=== PATIENT | male | born 1960 | race Caucasian/White ===

== ENCOUNTER → 2016-06-15 | Outpatient (CLI) | payer OTHER ==
--- NOTE | 2016-06-15 10:35 | MR ---
EXAMINATION TYPE: MR shoulder RT wo con DATE OF EXAM: 06/15/2016 10:03 AM COMPARISON: NONE HISTORY: Pain in rt shoulder x 3 weeks. TECHNIQUE: Multiplanar, multisequence imaging of the right shoulder is performed without contrast. FINDINGS: Rotator Cuff: There is a partial full-thickness tear present, abnormal signal within the tendon subst ance more posteriorly compatible with tendinopathy of the infraspinatus tendon. Supraspinatus tendon shows the milad tear with retraction to the level of the acromion. Acromioclavicular Joint: Arthropathy changes present causing mass effect on the musculotendinous junc tion of supraspinatus, fluid signal present in the subacromial subdeltoid bursa. Glenohumeral Joint: There is geode formation at the bony glenoid especially at the inferior margin. S ome interval remodeling, spurring is present compatible with osteoarthritic change. Suspect there is a para labral cyst inferiorly. Labrum: Some linear increased signal is present within the labrum superiorly suggestive of tear. Labral cyst at the inferior aspect suggests labral tear, abnormal increased signal is present within the labrum. Biceps Tendon: Long biceps tendon shows fluid signal along its course, the tendon is perched along th e medial aspect of the bicipital groove, some increased signal within the tendon suggesting some tend inosis is noted. Bone marrow signal: Labral signal as described within the bony labrum. Subchondral geode formation is suspected. Other: There is a joint effusion. Distal acromial spur is present. Fluid present within the soft tiss ues deep to the deltoid muscle. IMPRESSION: Rotator cuff tear is full-thickness and partial as described. Long head biceps tendon. Suspect labral tear, osteoarthritic change. Joint effusion. Correlate for im pingement, distal acromial spur.
== END | disposition home or self-care (01) ==
LOC: RADMRIMAIN 09:16
PROVIDERS: ATTEND Orthopaedic Surgery Sports Medicine
DX: S46.011A Strain of muscle(s) and tendon(s) of the rotator cuff of right shoulder, initial encounter (principal)

== ENCOUNTER → 2016-06-23 | Outpatient (CLI) | payer OTHER ==
--- NOTE | 2016-06-23 23:42 | MR ---
EXAMINATION TYPE: MR thoracic spine wo con DATE OF EXAM: 06/23/2016 9:30 PM COMPARISON: 05/17/2015 HISTORY: Back pain Standard multiplanar, multisequence MRI departmental protocol Multiplanar, multisequence images of the thoracic spine were acquired. FINDINGS: The thoracic Normal alignment. There is degenerative disc space narrowing throughout the thoracic spine. I see no compression fracture. There is a small posterior disc herniation at T2-3 centrally and towards the left side. There is mild posterior disc herniation at T8-9 in the midline. There is a developmentally large spinal canal and no significant impingement on the thoracic spinal cord. There is no spinal stenosis. There is a round ed area of high signal in the T11 vertebral body consistent with hemangioma. There is no paraspinal m ass. The posterior elements are intact. IMPRESSION: Multilevel spondylosis. Mild posterior disc herniations as above. No spinal stenosis. The T2-3 disc h erniation appears slightly smaller than last exam. No fracture. There is posterior disc bulging at T6 -7 that is smaller than last exam.
== END | disposition home or self-care (01) ==
LOC: RADMRIMAIN 20:41
PROVIDERS: ATTEND Physical Medicine & Rehabilitation
DX: M51.24 Other intervertebral disc displacement, thoracic region (principal); M47.814 Spondylosis without myelopathy or radiculopathy, thoracic region
CPT/HCPCS: 72146

== ENCOUNTER → 2016-07-14 | Outpatient (CLI) | payer OTHER ==
--- NOTE | 2016-07-14 12:51 | MR ---
MRI CERVICAL SPINE: CLINICAL HISTORY: Cervicalgia and cervical region spondylosis per order. Headache with left-sided nec k pain causing pain or weakness into right arm per patient. TECHNIQUE: Multiplanar, multisequence imaging of the cervical spine is performed without IV contrast. COMPARISON: None. FINDINGS: Sagittal images of the cervical spine show the craniocervical junction to appear within nor mal limits. The cervical and upper thoracic spinal cord is normal in course, caliber, and signal. Th e vertebral body heights are normal. There is moderate to severe multilevel disc space narrowing wit h relative sparing of C2-C3 level with moderate multilevel spurring multilevel small posterior spur d isc complexes are seen effacing anterior thecal sac with relative sparing of C2-C3 level on sagittal images. There is overall heterogeneity of bone marrow signal intensity with endplate changes identifi ed most prominent at C7-T1 level. Axial images show the C2-C3 level to appear within normal limits. Axial images at C3-C4 level show posterior spur disc complex effacing anterior thecal sac and causing mild to moderate bilateral neural foraminal narrowing , uncovertebral facet arthropathy is also fel t present bilaterally. Axial images at C4-C5 level show right paracentral spur disc complex effacing anterior thecal sac and causing moderate to severe bilateral neural foraminal narrowing, uncovertebral facet arthropathy fahad aterally at this level is present. Axial images at C5-C6 level show broad-based posterior disc protrusion mildly effacing anterior theca l sac and causing moderate to severe bilateral neural foraminal narrowing. Some uncovertebral facet a rthropathy bilaterally is present at this level. Axial images at C6-C7 level show broad-based lobulated paracentral disc protrusion effacing anterior thecal sac and causing advanced left and moderate right-sided neural foraminal narrowing. Axial images at C7-T1 level show broad-based central disc protrusion mildly effacing anterior thecal sac, there is mild to moderate left-sided neural foraminal narrowing. Right-sided neural foramen is p atent. Axial images at T1-T2 level are felt within normal limits on axial image 13. IMPRESSION: Retrolisthesis C4-C5 level with moderate to advanced multilevel degenerative changes quit e pronounced for patient's age with relative sparing of C2-C3 level with further details as noted in body of report.
== END | disposition home or self-care (01) ==
LOC: RADMRIMAIN 11:51
PROVIDERS: ATTEND Physical Medicine & Rehabilitation
DX: M43.12 Spondylolisthesis, cervical region (principal); M47.812 Spondylosis without myelopathy or radiculopathy, cervical region
CPT/HCPCS: 72141

== ENCOUNTER → 2017-06-11 | Outpatient (CLI) | payer OTHER ==
--- NOTE | 2017-06-11 10:58 | MR ---
EXAMINATION TYPE: MR shoulder LT wo con DATE OF EXAM: 06/11/2017 7:44 AM COMPARISON: NONE HISTORY: Pain in left shoulder, Impingement TECHNIQUE: Multiplanar multispin echo imaging of the left shoulder was performed. FINDINGS: Rotator cuff : Retracted full-thickness tear of the supraspinatus tendon with fluid filled gap measur ing 11.6 mm. No evidence for muscular atrophy. Partial tear at the subscapularis insertion. Infraspin atus is intact. Moderate fluid surrounds the subscapularis tendon and musculature at its musculotendi nous junction. There is also a small amount of subacromial subdeltoid fluid noted. Musculature: There is no muscular tear, contusion, or atrophy. Acromioclavicular joint : Moderate AC joint arthropathy noted. Subacromial spurring seen resulting in impingement. Osseous structures : There are no fractures or regions of abnormal bone marrow signal intensity. Long biceps tendon : The biceps tendon is normally situated within the bicipital groove. No complete or partial biceps tendon tear is present. Glenohumeral Joint fluid : Subcoracoid fluid is noted. Cartilage and Bone : No focal hyaline cartilage defects are noted. No Hill-Sachs, reverse Hill-Sachs, or bony Bank[place] lesions are seen. Labrum : There are no SLAP or soft tissue Bankart lesions. No paralabral cysts are seen. OTHER FINDINGS : none IMPRESSION: 1. Retracted full-thickness tear supraspinatus tendon. 2. Partial tear subscapularis tendon with surrounding fluid. 3. Subacromial spurring resulting in impingement.
== END | disposition home or self-care (01) ==
LOC: RADMRIMAIN 07:00
PROVIDERS: ATTEND Orthopaedic Surgery Sports Medicine
DX: M75.122 Complete rotator cuff tear or rupture of left shoulder, not specified as traumatic (principal); M75.42 Impingement syndrome of left shoulder

== ENCOUNTER → 2017-08-20 | Outpatient (CLI) | payer OTHER ==
--- NOTE | 2017-08-20 15:41 | XR ---
EXAMINATION TYPE: XR abdomen 2V DATE OF EXAM: 08/20/2017 HISTORY: Pain. Technique: 2 views of the abdomen are submitted. Comparison: None. Findings: There is no convincing evidence of pneumoperitoneum. The Bowel gas pattern is nonspecific and nonobstructive. No sizable air-fluid levels are seen. No mass effects are noted. No renal calcifications are identified. IMPRESSION: 1. Nonspecific nonobstructive bowel gas pattern
== END ==
LOC: RADXRMAIN 15:19
PROVIDERS: ATTEND Pediatrics
DX: R10.9 Unspecified abdominal pain (principal)
CPT/HCPCS: 74019

== ENCOUNTER → 2017-09-09 | Outpatient (CLI) | payer OTHER ==
--- NOTE | 2017-09-09 18:45 | MR ---
EXAMINATION TYPE: MR knee LT wo con DATE OF EXAM: 09/09/2017 COMPARISON: NONE HISTORY: pain in left knee TECHNIQUE: Multiplanar, multisequence images of the knee is performed without IV contrast. FINDINGS: MEDIAL MENISCUS: There is a tear noted at posterior horn medial meniscus with medial displacement of the meniscus noted. There is superimposed myxoid degeneration . Anterior horn is intact. LATERAL MENISCUS: Anterior and posterior horns are intact without tear. CRUCIATE LIGAMENTS: The anterior and posterior cruciate ligaments are intact and unremarkable. COLLATERAL LIGAMENTS: Medial collateral ligament strain with partial tear difficult to exclude. Later al collateral ligament is intact. EXTENSOR MECHANISM: Visualized quadriceps and patellar tendons are intact. EFFUSION: No significant suprapatellar joint effusion. POPLITEAL CYST: No popliteal/kaplan cyst. TRICOMPARTMENT SPACES: Intact CARTILAGE: Cartilaginous thinning involving the medial femoral condyle with underlying bone marrow ed douglas. BONE MARROW SIGNAL: Mild bone marrow increased signal medial femoral condyle as well as the medial ti bial plateau. OTHER: No additional significant abnormality is appreciated. IMPRESSION: 1. Medial meniscal tear. 2. Strain with partial tear difficult to exclude the medial collateral ligament.
== END | disposition home or self-care (01) ==
LOC: RADMRIMAIN 06:17
PROVIDERS: ATTEND Orthopaedic Surgery Sports Medicine
DX: S83.242A Other tear of medial meniscus, current injury, left knee, initial encounter (principal); M75.42 Impingement syndrome of left shoulder; M66.812 Spontaneous rupture of other tendons, left shoulder; M54.41 Lumbago with sciatica, right side; Z47.89 Encounter for other orthopedic aftercare; Z98.890 Other specified postprocedural states

== ENCOUNTER 2017-11-01 14:09 | Emergency (ER) | payer OTHER ==
[2017-11-01 14:30] VITALS: RESP 16; TEMP 97.8
--- NOTE | 2017-11-01 14:57 | ED ---
Male Urogenital HPI - General Chief complaint: Urogenital Stated complaint: STD check Time Seen by Provider: 11/01/17 14:41 Source: patient, RN notes reviewed Mode of arrival: ambulatory Limitations: no limitations - History of Present Illness Initial comments: This is a 57-year-old male who presents to the emergency department with request for STD testing. Patient states that he has been to his for the past 25 years. He states that 2 weeks ago she informed him that she may have an STD. Patient is unable to recall what STD his may have. He denies any genital lesions or urethral discharge. Patient states that he did call his primary care provider but was unable to get in for the next couple days. Patient is very worried and wishes to be tested for syphilis, HIV, chlamydia and gonorrhea. Denies any recent fevers or chills, chest pain or shortness of breath, abdominal pain, nausea or vomiting, dizziness or headache. - Related Data Allergies Allergy/AdvReac Type Severity Reaction Status Date / Time No Known Allergies Allergy Verified 11/01/17 14:30 Review of Systems ROS Statement: Those systems with pertinent positive or pertinent negative responses have been documented in the HPI. ROS Other: All systems not noted in ROS Statement are negative. Past Medical History Past Medical History: Hyperlipidemia, Hypertension History of Any Multi-Drug Resistant Organisms: None Reported Past Surgical History: Hernia Repair, Orthopedic Surgery Past Psychological History: No Psychological Hx Reported Smoking Status: Never smoker Past Alcohol Use History: None Reported Past Drug Use History: Marijuana General Exam - General Exam Comments Initial Comments: General: Awake and alert, well-developed; in no apparent distress. HEENT: Head atraumatic, normocephalic. Pupils are equal, round and reactive to light. Extraocular movements intact. Oropharynx moist without erythema or exudate. Neck: Supple. Normal ROM. Cardiovascular: Regular rate and rhythm. No murmurs, rubs or gallops. Chest symmetrical. Respiratory: Lungs clear to auscultation bilaterally. No wheezes, rales or rhonchi. Normal respiratory effort with no use of accessory muscles. Musculoskeletal: Normal ROM, no tenderness bilateral upper and lower extremities. Ambulating normally. Skin: [place], warm and dry without rashes or lesions. Neurological: Alert and oriented x3. CN II-XII grossly intact. Speech is fluent and answers are appropriate. No focal neuro deficits. Psychiatric: Patient is tearful and appears sad and worried. Limitations: no limitations Course Vital Signs 11/01/17 14:26 Temperature 97.8 F Pulse Rate 92 Respiratory 16 Rate Blood Pressure 197/94 O2 Sat by Pulse 97 Oximetry Medical Decision Making - Medical Decision Making This is a 57-year-old male who presents to the emergency department with request to have STD testing. Blood work was sent for testing of HIV and syphilis. Urine was sent for testing for chlamydia and gonorrhea. Patient was informed that these are send out tests and he will be notified if anything comes back positive. Patient is in no acute distress. He'll be discharged home at this time. All questions answered. Disposition Clinical Impression: Risk for sexually transmitted disease Disposition: HOME SELF-CARE Condition: Good Instructions: Sexually Transmitted Diseases (ED) Additional Instructions: You will be notified in the next few days of the results. Please follow up with primary care provider within 1-2 days. Return to emergency department if symptoms should worsen or any concerns arise. Is patient prescribed a controlled substance at d/c from ED?: No Referrals: Almas Martel MD [Primary Care Provider] - 1-2 days Time of Disposition: 15:22
[2017-11-01 15:43] VITALS: BP 168/79; PULSE 69
[2017-11-01 20:12] LABS: HIV AB P24 Non-Reactive (Non-Reactive); HIV P24 AG Non-Reactive (Non-Reactive)
[2017-11-02 15:13] LABS: C. trachomatis,PCR Negative (Neg,Equiv); Chlamydia trachomatis Source Urine; N. gonorrhoeae,PCR Negative (Neg,Equiv); Neisseria Source Urine
== END 2017-11-01 15:20 | disposition home or self-care (01) ==
LOC: EC 14:09
DX: Z91.89 Other specified personal risk factors, not elsewhere classified (principal); Z11.3 Encounter for screening for infections with a predominantly sexual mode of transmission
CPT/HCPCS: 36415; 86780; 87390; 87491; 87591; 99283

== ENCOUNTER 2017-12-25 06:43 | Emergency (ER) | payer OTHER ==
--- NOTE | 2017-12-25 07:20 | ED ---
General Adult HPI - General Chief complaint: Abdominal Pain Stated complaint: rib/back pain Time Seen by Provider: 12/25/17 07:01 Source: patient, RN notes reviewed, old records reviewed Mode of arrival: ambulatory Limitations: no limitations - History of Present Illness Initial comments: 57-year-old male presenting with right upper quadrant pain. Patient states he has had this pain for many years. It is mostly minimal and intermittent. Over the past several weeks his pain has become more constant and more severe. Describes it as a dull aching and burning sensation in his right upper quadrant and right flank. Denies any central chest pain or dyspnea. Denies lower abdominal pain. Patient denies alcohol abuse. Patient has past medical history of hypertension and hyperlipidemia. No history of heart disease. Denies tobacco use. Denies vomiting or diarrhea. Denies fever or chills. - Related Data Home Medications Medication Instructions Recorded Confirmed Fenofibrate Nanocrystallized 145 mg PO DAILY 12/25/17 12/25/17 [Tricor] Allergies Allergy/AdvReac Type Severity Reaction Status Date / Time No Known Allergies Allergy Verified 11/01/17 14:30 Review of Systems ROS Statement: Those systems with pertinent positive or pertinent negative responses have been documented in the HPI. ROS Other: All systems not noted in ROS Statement are negative. Past Medical History Past Medical History: Hyperlipidemia, Hypertension History of Any Multi-Drug Resistant Organisms: None Reported Past Surgical History: Hernia Repair, Orthopedic Surgery Past Psychological History: No Psychological Hx Reported Smoking Status: Never smoker Past Alcohol Use History: None Reported Past Drug Use History: Marijuana General Exam Limitations: no limitations General appearance: alert, in no apparent distress Head exam: Present: atraumatic, normocephalic Eye exam: Present: normal appearance, PERRL ENT exam: Present: normal exam Neck exam: Present: normal inspection. Absent: tenderness, meningismus Respiratory exam: Present: normal lung sounds bilaterally. Absent: respiratory distress Cardiovascular Exam: Present: regular rate, normal rhythm GI/Abdominal exam: Present: soft. Absent: distended, tenderness, guarding, rebound Extremities exam: Present: normal inspection, normal capillary refill. Absent: pedal edema Neurological exam: Present: alert, oriented X3, CN II-XII intact. Absent: motor sensory deficit Psychiatric exam: Present: normal affect, normal mood Skin exam: Present: warm, dry, intact. Absent: cyanosis, diaphoretic Course Vital Signs 12/25/17 12/25/17 06:44 07:42 Temperature 98.0 F Pulse Rate 82 78 Respiratory 20 18 Rate Blood Pressure 162/114 153/91 O2 Sat by Pulse 97 77 L Oximetry EKG Findings - EKG Comments: EKG Findings:: EKG: Normal sinus rhythm, left axis deviation rate of 77, SC interval 176, QRS duration 98, QTC [address] segment elevation or depression Medical Decision Making - Medical Decision Making 57-year-old male presenting with chronic right upper quadrant abdominal pain. Patient's pain is been present for many years. It has seemed to worsen over the past several weeks. No vomiting, no fever. Patient is well-appearing on exam. CBC, CMP are within normal limits. Lipase is 144 which is normal. Urinalysis clear, no hematuria. Chest x-ray and abdominal x-ray are negative for any acute process. Ultrasound gallbladder does show multiple polyps. Normal gallbladder wall, no pericholecystic fluid, normal common bile duct. Patient's symptoms may be related to gallbladder polyps. He will be referred to general surgery. Return with worsening or changing symptoms. - Lab Data Result diagrams: 12/25/17 07:00 12/25/17 07:00 Lab Results 12/25/17 12/25/17 12/25/17 Range/Units 07:00 07:00 07:00 WBC 6.5 (3.8-10.6) k/uL RBC 5.01 (4.30-5.90) m/uL Hgb 15.4 (13.0-17.5) gm/dL Hct 45.4 (39.0-53.0) % MCV 90.6 (80.0-100.0) fL MCH 30.7 (25.0-35.0) pg MCHC 33.8 (31.0-37.0) g/dL RDW 12.7 (11.5-15.5) % Plt Count 293 (150-450) k/uL Neutrophils % 64 % Lymphocytes % 20 % Monocytes % 10 % Eosinophils % 4 % Basophils % 0 % Neutrophils # 4.1 (1.3-7.7) k/uL Lymphocytes # 1.3 (1.0-4.8) k/uL Monocytes # 0.7 (0-1.0) k/uL Eosinophils # 0.3 (0-0.7) k/uL Basophils # 0.0 (0-0.2) k/uL PT 10.2 (9.0-12.0) sec INR 1.0 (<1.2) APTT 23.1 (22.0-30.0) sec Sodium 139 (137-145) mmol/L Potassium 4.2 (3.5-5.1) mmol/L Chloride 105 (98-107) mmol/L Carbon Dioxide 24 (22-30) mmol/L Anion Gap 10 mmol/L BUN 21 H (9-20) mg/dL Creatinine 0.78 (0.66-1.25) mg/dL Est GFR (CKD-EPI)AfAm >90 (>60 ml/min/1.73 sqM) Est GFR (CKD-EPI)NonAf >90 (>60 ml/min/1.73 sqM) Glucose 107 H (74-99) mg/dL Calcium 9.5 (8.4-10.2) mg/dL Total Bilirubin 0.9 (0.2-1.3) mg/dL AST 40 (17-59) U/L ALT 29 (21-72) U/L Alkaline Phosphatase 56 (38-126) U/L Troponin I (0.000-0.034) ng/mL Total Protein 7.0 (6.3-8.2) g/dL Albumin 4.5 (3.5-5.0) g/dL Amylase 79 (30-110) U/L Lipase 144 (23-300) U/L Urine Color Urine Appearance (Clear) Urine pH (5.0-8.0) Ur Specific [place] (1.001-1.035) Urine Protein (Negative) Urine Glucose (UA) (Negative) Urine Ketones (Negative) Urine Blood (Negative) Urine Nitrite (Negative) Urine Bilirubin (Negative) Urine Urobilinogen (<2.0) mg/dL Ur Leukocyte Esterase (Negative) 12/25/17 12/25/17 Range/Units 07:00 07:40 WBC (3.8-10.6) k/uL RBC (4.30-5.90) m/uL Hgb (13.0-17.5) gm/dL Hct (39.0-53.0) % MCV (80.0-100.0) fL MCH (25.0-35.0) pg MCHC (31.0-37.0) g/dL RDW (11.5-15.5) % Plt Count (150-450) k/uL Neutrophils % % Lymphocytes % % Monocytes % % Eosinophils % % Basophils % % Neutrophils # (1.3-7.7) k/uL Lymphocytes # (1.0-4.8) k/uL Monocytes # (0-1.0) k/uL Eosinophils # (0-0.7) k/uL Basophils # (0-0.2) k/uL PT (9.0-12.0) sec INR (<1.2) APTT (22.0-30.0) sec Sodium (137-145) mmol/L Potassium (3.5-5.1) mmol/L Chloride (98-107) mmol/L Carbon Dioxide (22-30) mmol/L Anion Gap mmol/L BUN (9-20) mg/dL Creatinine (0.66-1.25) mg/dL Est GFR (CKD-EPI)AfAm (>60 ml/min/1.73 sqM) Est GFR (CKD-EPI)NonAf (>60 ml/min/1.73 sqM) Glucose (74-99) mg/dL Calcium (8.4-10.2) mg/dL Total Bilirubin (0.2-1.3) mg/dL AST (17-59) U/L ALT (21-72) U/L Alkaline Phosphatase (38-126) U/L Troponin I <0.012 (0.000-0.034) ng/mL Total Protein (6.3-8.2) g/dL Albumin (3.5-5.0) g/dL Amylase (30-110) U/L Lipase (23-300) U/L Urine Color Light Yellow Urine Appearance Clear (Clear) Urine pH 7.0 (5.0-8.0) Ur Specific [place] 1.007 (1.001-1.035) Urine Protein Negative (Negative) Urine Glucose (UA) Negative (Negative) Urine Ketones Negative (Negative) Urine Blood Negative (Negative) Urine Nitrite Negative (Negative) Urine Bilirubin Negative (Negative) Urine Urobilinogen <2.0 (<2.0) mg/dL Ur Leukocyte Esterase Negative (Negative) Disposition Clinical Impression: Polyp of gallbladder Disposition: HOME SELF-CARE Condition: Good Instructions: Biliary Colic (ED) Is patient prescribed a controlled substance at d/c from ED?: No Referrals: Almas Martel MD [Primary Care Provider] - 1-2 days Dilip Barron DO [Doctor of Osteopathic Medicine] - 1-2 days Time of Disposition: 08:38
[2017-12-25 07:27] LABS: Basophils % (A) 0 %; Eosinophils # (A) 0.3 k/uL (0-0.7); Eosinophils % (A) 4 %; HCT 45.4 % (39.0-53.0); HGB 15.4 gm/dL (13.0-17.5); Lymphocytes # (A) 1.3 k/uL (1.0-4.8); Lymphocytes % (A) 20 %; MCH 30.7 pg (25.0-35.0); MCHC 33.8 g/dL (31.0-37.0); MCV 90.6 fL (80.0-100.0); Mean Platelet Volume 6.4; Monocytes # (A) 0.7 k/uL (0-1.0); Monocytes % (A) 10 %; Neutrophils # (A) 4.1 k/uL (1.3-7.7); Neutrophils % (A) 64 %; Platelet Count 293 k/uL (150-450); RBC 5.01 m/uL (4.30-5.90); RDW 12.7 % (11.5-15.5); WBC 6.5 k/uL (3.8-10.6)
--- NOTE | 2017-12-25 07:35 | XR ---
EXAMINATION TYPE: XR chest 2V DATE OF EXAM: 12/25/2017 HISTORY: abdominal pain. REFERENCE: Previous study dated 03/03/2012. FINDINGS: The lungs are clear. Pleural space are clear. The heart is not enlarged. IMPRESSION: NO ACTIVE CARDIOTHORACIC DISEASE.
--- NOTE | 2017-12-25 07:36 | XR ---
EXAMINATION TYPE: XR KUB , 2 VIEWS DATE OF EXAM ORDERED: 12/25/2017 HISTORY: abdominal pain. COMPARISON: None. FINDINGS: The lung bases are clear. The abdominal gas pattern is normal. There is no evidence of obstruction or free air. No unusual calc ifications are seen. There is a mild dextroscoliosis. IMPRESSION: NO ACTIVE INTRA-ABDOMINAL ABNORMALITY.
[2017-12-25 07:44] VITALS: RESP 18
[2017-12-25 07:50] LABS: Albumin 4.5 g/dL (3.5-5.0); Amylase 79 U/L (30-110); Anion Gap 10 mmol/L; Calcium 9.5 mg/dL (8.4-10.2); Carbon Dioxide 24 mmol/L (22-30); Chloride 105 mmol/L (98-107); Glucose 107 mg/dL (74-99); Lipase 144 U/L (23-300); Sodium 139 mmol/L (137-145); Total Bilirubin 0.9 mg/dL (0.2-1.3)
[2017-12-25 07:51] LABS: Partial Thromboplastin Time 23.1 sec (22.0-30.0); Prothrombin Time 10.2 sec (9.0-12.0)
[2017-12-25 07:57] LABS: AST 40 U/L (17-59); Blood Urea Nitrogen 21 mg/dL (9-20); Potassium 4.2 mmol/L (3.5-5.1)
[2017-12-25 07:58] LABS: ALT 29 U/L (21-72); Alkaline Phosphatase 56 U/L (38-126)
[2017-12-25 08:00] LABS: Appearance,Urine Clear (Clear); Bilirubin,Urine Negative (Negative); Blood,Urine Negative (Negative); Color,Urine Light Yellow; Glucose,Urine (UA) Negative (Negative); Ketones,Urine Negative (Negative); Leukocyte Esterase,Urine Negative (Negative); Nitrite,Urine Negative (Negative); Protein,Urine Negative (Negative); Specific Gravity,Urine 1.007 (1.001-1.035); Urobilinogen,Urine <2.0 mg/dL (<2.0)
--- NOTE | 2017-12-25 08:08 | US ---
EXAMINATION TYPE: US gallbladder DATE OF EXAM: 12/25/2017 COMPARISON: US CLINICAL HISTORY: Pain. Pt states RUQ pain EXAM MEASUREMENTS: Liver Length: 15.7 cm Gallbladder Wall: 0.2 cm CBD: 0.2 cm Right Kidney: 12.4 x 4.7 x 5.2 cm Pancreas: Obscured by bowel gas Liver: wnl Gallbladder: Multiple, small polyps anterior and posterior reece, otherwise appeared unremarkable Evidence for sonographic Berger's sign: Yes CBD: wnl Right Kidney: Cyst mid= 0.4 cm, otherwise appeared wnl The pancreas is obscured. The liver is normal in size without biliary dilatation. There are multiple small polyps within the gallbladder. The gallbladder wall measures 2 mm. The dista l common hepatic duct measures 2 mm. There is a tiny, 4 mm cortical cyst involving the lower pole of the right kidney. IMPRESSION: 1. MULTIPLE GALLBLADDER POLYPS. 2. TINY RIGHT RENAL CYST.
[2017-12-25 08:52] VITALS: BP 143/92; PULSE 72; TEMP 98.8
== END 2017-12-25 08:50 | disposition home or self-care (01) ==
LOC: EC 06:43
DX: K82.4 Cholesterolosis of gallbladder (principal); E78.5 Hyperlipidemia, unspecified; Z98.890 Other specified postprocedural states; Z79.899 Other long term (current) drug therapy
CPT/HCPCS: 36415; 71046; 74018; 76705; 80053; 81003; 82150; 83690; 84484; 85025; 85610; 85730; 93005; 99285

== ENCOUNTER → 2018-02-07 | Day surgery (SDC) | payer OTHER ==
[2018-02-01 14:23] VITALS: BMI 23.1
[~2018-02-07] MED LIST: BUPIVACAIN-EPI 0.5%-1:200,000 30 ML VIAL SQ ONE; DEXAMETHASONE SOD PHOSPHATE 10 MG/ML 1 ML VIAL IV ONE; GLYCOPYRROLATE 0.2 MG/ML 2 ML VIAL ONE; HEPARIN SODIUM,PORCINE 5,000 UNIT/ML 1 ML VIAL SQ ONE; HYDROmorphone 0.5 MG/0.5 ML SYRINGE IVP PRN; KETOROLAC 30 MG/ML 1 ML VIAL IVP ONE; LACTATED RINGERS 1,000 ML IV SCH; LIDOCAINE 1% 20 ML VIAL (10MG/ML) FOR IV START INTRADERMA PRN; LIDOCAINE 1% INJ 10MG/ML (20 ML MDV) ONE; MIDAZOLAM 2 MG/2 ML VIAL IV PRN; MIDAZOLAM 2 MG/2 ML VIAL ONE; NEOSTIGMINE 1 MG/ML 10 ML VIAL ONE; ONDANSETRON 4 MG/2 ML VIAL IVP ONE; PROPOFOL 10 MG/ML 20 ML VIAL IV ONE; ROCURONIUM BROMIDE 10 MG/ML 10 ML VIAL IV ONE; SCOPOLAMINE 1.5MG/72HR PATCH TRANSDERM ONE; SUCCINYLCHOLINE CHLORIDE 100 MG/5 ML SYR IV ONE; ceFAZolin IN SWFI 2 GM/20 ML SYRINGE IVP ONE; fentaNYL (PF) 50 MCG/ML 2 ML AMP ONE
[2018-02-07 08:28] VITALS: RESP 16
--- NOTE | 2018-02-07 08:33 | P.GSHP ---
History of Present Illness H&P Date: 02/07/18 Chief Complaint: Right upper quadrant pain This a 57-year-old male complains of upper right quadrant pain. His recent ultrasound shows evidence of gallbladder wall polyps. He presents today for laparoscopic cholecystectomy.. Past Medical History Past Medical History: Hyperlipidemia, Hypertension Additional Past Medical History / Comment(s): CURRENTLY HAS ABSCESSED TOOTH-TO BE PULLED LATER TODAY. GALLBLADDER DISORDER History of Any Multi-Drug Resistant Organisms: None Reported Past Surgical History: Hernia Repair, Orthopedic Surgery Additional Past Surgical History / Comment(s): BILAT KNEE SCOPES. BILAT ROTATOR CUFF REPAIR. DOUBLE HERNIA. COLONOSCOPY Past Anesthesia/Blood Transfusion Reactions: No Reported Reaction Smoking Status: Never smoker - Past Family History Mother Family Medical History: No Reported History Medications and Allergies Home Medications Medication Instructions Recorded Confirmed Type Fenofibrate Nanocrystallized 145 mg PO DAILY 12/25/17 02/07/18 History [Tricor] Aspirin [Children's Aspirin] 81 mg PO DAILY 02/01/18 02/07/18 History amLODIPine [Norvasc] 5 mg PO DAILY 02/03/18 02/07/18 History Allergies Allergy/AdvReac Type Severity Reaction Status Date / Time No Known Allergies Allergy Verified 02/07/18 08:11 Surgical - Exam Vital Signs Temp Pulse Resp BP Pulse Ox 97.7 F 72 16 151/95 98 02/07/18 08:26 02/07/18 08:26 02/07/18 08:26 02/07/18 08:26 02/07/18 08:26 - General well developed, no distress - Eyes PERRL - ENT normal pinna - Neck no masses - Respiratory normal expansion - Cardiovascular Rhythm: regular - Abdomen Abdomen: soft, non tender Assessment and Plan Assessment: chronic cholecystitis Gallbladder wall pulse We'll perform laparoscopic cholecystectomy.
--- NOTE | 2018-02-07 09:52 | P.OP ---
Date of Procedure: 02/07/18 Preoperative Diagnosis: Cholecystitis Postoperative Diagnosis: Cholecystitis Procedure(s) Performed: Laparoscopic cholecystectomy Anesthesia: CHUYITA Surgeon: Brenden Silvestre Pathology: other (Gallbladder) Condition: stable Disposition: PACU Description of Procedure: The patient was placed on the operating table. The patient received a general endotracheal tube anesthesia. The patients abdomen was prepped and draped in the usual sterile fashion. Through an infraumbilical stab incision, the fascia of the anterior abdominal wall was grasped with a pair of Kochers and then the Veress needle was placed in the peritoneal cavity. Position of the Veress needle was confirmed with positive drop test. The abdomen was then insufflated. After adequate insufflation, the 10 mm trocar was placed in the peritoneal cavity. Following this the laparoscope was placed in the peritoneal cavity. The patient was placed in the head-up, right side up position and then a 5 mm trocar was placed in the right lateral and right subcostal position under direct visualization. A 8 mm trocar was placed in the epigastric position. The gallbladder was grasped in the fundus and infundibulum. Traction on the gallbladder was placed in the lateral and the cephalad positions. The triangle of Calot was visualized.. The cystic duct was bluntly dissected until the union of the cystic duct and common bile duct was seen. The cystic duct was then divided and sealed with the Harmonic scissors. A PDS Endoloop was then placed throughout the cystic duct stump. The cystic artery divided and sealed with the Harmonic scissors. The gallbladder was then removed from the liver bed using Harmonic scissors. The gallbladder was then extracted through the epigastric port site. Operative field was checked for any bleeding spots and Harmonic scissors was used to coagulate the liver bed. The abdomen was irrigated. The trocars were removed. The skin was closed using interrupted 3-0 Vicryl suture. Dermabond dressing were applied. The patient tolerated the procedure well.
[2018-02-07 10:02] VITALS: TEMP 97.8
[2018-02-07 10:50] VITALS: BP 132/79
[2018-02-07 11:17] VITALS: PULSE 81
== END ==
LOC: OR 07:13
PROVIDERS: ATTEND Surgery
DX: K81.1 Chronic cholecystitis (principal); E78.5 Hyperlipidemia, unspecified; I10 Essential (primary) hypertension; Z79.82 Long term (current) use of aspirin; Z79.899 Other long term (current) drug therapy; F17.210 Nicotine dependence, cigarettes, uncomplicated
CPT/HCPCS: 88304; 47562; J2250; J1644; J1100; J2710; J2405; J2001; J3010; J1885; J0330; J2704; J0690

== ENCOUNTER 2018-05-06 11:11 | Day surgery (SDC) | payer OTHER ==
[2018-05-04 10:40] VITALS: BMI 23.5
[~2018-05-06 11:11] MED LIST changes: -BUPIVACAIN-EPI 0.5%-1:200,000 30 ML VIAL SQ ONE; -DEXAMETHASONE SOD PHOSPHATE 10 MG/ML 1 ML VIAL IV ONE; -GLYCOPYRROLATE 0.2 MG/ML 2 ML VIAL ONE; -HEPARIN SODIUM,PORCINE 5,000 UNIT/ML 1 ML VIAL SQ ONE; -HYDROmorphone 0.5 MG/0.5 ML SYRINGE IVP PRN; -KETOROLAC 30 MG/ML 1 ML VIAL IVP ONE; -LIDOCAINE 1% 20 ML VIAL (10MG/ML) FOR IV START INTRADERMA PRN; -LIDOCAINE 1% INJ 10MG/ML (20 ML MDV) ONE; -MIDAZOLAM 2 MG/2 ML VIAL IV PRN; -MIDAZOLAM 2 MG/2 ML VIAL ONE; -NEOSTIGMINE 1 MG/ML 10 ML VIAL ONE; -ONDANSETRON 4 MG/2 ML VIAL IVP ONE; -PROPOFOL 10 MG/ML 20 ML VIAL IV ONE; -ROCURONIUM BROMIDE 10 MG/ML 10 ML VIAL IV ONE; -SCOPOLAMINE 1.5MG/72HR PATCH TRANSDERM ONE; -SUCCINYLCHOLINE CHLORIDE 100 MG/5 ML SYR IV ONE; -ceFAZolin IN SWFI 2 GM/20 ML SYRINGE IVP ONE; -fentaNYL (PF) 50 MCG/ML 2 ML AMP ONE
[2018-05-06] MEDS ORDERED: LIDOCAINE 1% 20 ML VIAL (10MG/ML) FOR IV START INTRADERMA ONE (11:25)
[2018-05-06 11:35] VITALS: RESP 16; TEMP 98.2
[2018-05-06] MEDS ORDERED: PROPOFOL 10 MG/ML 20 ML VIAL IV ONE (11:49)
[2018-05-06] MEDS ORDERED: LIDOCAINE 1% INJ 10MG/ML (20 ML MDV) ONE (11:49)
[2018-05-06] MEDS ORDERED: GLUCAGON 1 MG/ML VIAL ONE (11:49)
--- NOTE | 2018-05-06 11:53 | P.GSHP ---
History of Present Illness H&P Date: 05/06/18 Chief Complaint: Diarrhea, GERD This is a 57-year-old male who presents today for EGD and colonoscopy. Patient had issues with diarrhea and GERD. Past Medical History Past Medical History: Hyperlipidemia, Hypertension Additional Past Medical History / Comment(s): CURRENTLY HAS ABSCESSED TOOTH-TO BE PULLED LATER TODAY. GALLBLADDER DISORDER History of Any Multi-Drug Resistant Organisms: None Reported Past Surgical History: Cholecystectomy, Hernia Repair, Orthopedic Surgery Additional Past Surgical History / Comment(s): BILAT KNEE SCOPES. BILAT ROTATOR CUFF REPAIR. DOUBLE HERNIA. COLONOSCOPY Past Anesthesia/Blood Transfusion Reactions: No Reported Reaction Smoking Status: Never smoker - Past Family History Mother Family Medical History: No Reported History Medications and Allergies Home Medications Medication Instructions Recorded Confirmed Type Fenofibrate Nanocrystallized 145 mg PO DAILY 12/25/17 05/06/18 History [Tricor] Aspirin [Children's Aspirin] 81 mg PO DAILY 02/01/18 05/06/18 History amLODIPine [Norvasc] 5 mg PO DAILY 02/03/18 05/06/18 History Omeprazole [PriLOSEC] 20 mg PO DAILY 05/04/18 05/06/18 History Allergies Allergy/AdvReac Type Severity Reaction Status Date / Time No Known Allergies Allergy Verified 05/04/18 10:36 Surgical - Exam Vital Signs Temp Pulse Resp BP Pulse Ox 98.2 F 89 16 158/92 97 05/06/18 11:32 05/06/18 11:32 05/06/18 11:32 05/06/18 11:32 05/06/18 11:32 - General well developed, no distress - Eyes PERRL - ENT normal pinna - Neck no masses - Respiratory normal expansion - Cardiovascular Rhythm: regular - Abdomen Abdomen: soft, non tender Assessment and Plan Assessment: Diarrhea, GERD. We'll perform EGD and colonoscopy.
--- NOTE | 2018-05-06 12:15 | P.OP ---
Date of Procedure: 05/06/18 Preoperative Diagnosis: GERD, diarrhea Postoperative Diagnosis: Gastritis Normal colon to right colon. Right colon not visualized.. Barium enema pending Procedure(s) Performed: EGD Colonoscopy Anesthesia: MAC Surgeon: Brenden Silvestre Pathology: other (Antrum., Esophagus) Condition: stable Disposition: PACU Description of Procedure: The patient's placed on the endoscopy table in the lateral position. He received IV sedation. The gastroscope was placed oropharynx and passed into the esophagus is a stomach. Scope was then placed through the pylorus. The first and second portion of the duodenum appeared normal. Scope was then brought back the antrum this was inflamed. A biopsies performed. There is some evidence of some melanotic fluid in the stomach. There is no evidence of upper GI bleed. The GE junction was at 47 is. The distal esophagus appeared minimally inflamed a biopsies performed. There was no hiatal hernia. The proximal esophagus appeared normal. Scope was withdrawn for patient. Next digital rectal exam was performed which revealed no ebonized. The flexible colonoscope was then placed patient anus and passed throughout the colon. The right colon could not be visualized. Multiple times made to enter the right colon. This was impossible. The scope was withdrawn and the transverse colon, descending colon and sigmoid colon appeared normal. Scope was then brought back the rectum and this appeared normal. Scope was withdrawn for patient. Patient scheduled for a barium enema.
[2018-05-06 12:45] VITALS: BP 131/79; PULSE 73
--- NOTE | 2018-05-06 15:20 | FL ---
EXAMINATION TYPE: FL barium enema DATE OF EXAM: 05/06/2018 COMPARISON: 12/25/2017 HISTORY: Post colonoscopy, incomplete evaluation TECHNIQUE: AP view supine abdomen is performed on 2 images. FINDINGS: Abundant bowel gas is present through the ascending transverse and proximal descending colo n. Small amount of bowel gas within the descending colon. There appears to be abundant bowel gas in s mall bowel loops extending into the left upper quadrant of the abdomen. Bowel gas pattern is in a nor mal distribution. Bowel gas however appears to significant for single or double contrast barium enema at this time. Delayed images would place this patient after hours. The barium enema will be reschedu led with clear liquid diet. IMPRESSION: 1. Abundant bowel gas throughout the abdomen post colonoscopy.
--- NOTE | 2018-05-07 09:39 | FL ---
EXAMINATION TYPE: FL barium enema w air contrast DATE OF EXAM: 05/07/2018 COMPARISON: NONE HISTORY: Left lower quadrant pain. TECHNIQUE: A double contrast barium enema study is performed. FINDINGS: There is a mild dextroscoliosis. Barium were introduced into the rectum and flowed freely from the rectum to the cecum with reflux int o the terminal ileum. Initially there was some spasm in the sigmoid colon but this resolved. The muco jl pattern throughout the bowel is unremarkable. No fixed filling defects are seen. There is no obst ructing or constricting disease. There is no significant diverticular change.. IMPRESSION: NORMAL AIR-CONTRAST BARIUM ENEMA.
== END 2018-05-06 14:27 | disposition home or self-care (01) ==
LOC: ORWHC2ENDO 11:11
PROVIDERS: ATTEND Surgery
DX: K29.50 Unspecified chronic gastritis without bleeding (principal); R19.7 Diarrhea, unspecified; K21.9 Gastro-esophageal reflux disease without esophagitis; E78.5 Hyperlipidemia, unspecified; I10 Essential (primary) hypertension; Z79.82 Long term (current) use of aspirin; Z79.899 Other long term (current) drug therapy; Z90.49 Acquired absence of other specified parts of digestive tract
CPT/HCPCS: 88305; 74270; 45378; 43239; J1610; J2001; J2704; 74280

== ENCOUNTER 2020-03-05 12:44 | Emergency (ER) | payer BC, OTHER ==
[2020-03-05 13:00] VITALS: TEMP 97.8
[2020-03-05] MEDS ORDERED: ASPIRIN 81 MG PO STA (13:21)
[2020-03-05] MEDS ORDERED: NITROGLYCERIN SL TABS 0.4 MG TAB SUBLINGUAL STA (13:21)
--- NOTE | 2020-03-05 13:29 | ED ---
Chest Pain HPI - General Chief Complaint: Chest Pain Stated Complaint: chest pain Time Seen by Provider: 03/05/20 13:04 Source: patient, RN notes reviewed Mode of arrival: ambulatory Limitations: no limitations - History of Present Illness Initial Comments: This is a 59-year-old male who states that a history of a heart attack in the past was a smoker of marijuana but not cigarettes also history of a buck for many years who states he had the onset over the past 3 or 4 days of chest pain it seems to start from his back radiating frontwards states is achy in nature sometimes gets worse with certain positional changes such as sitting up and 2-3/10 in severity no cough fevers chills nausea vomiting sweats palpitations. He has a history of hypertension in addition to this. He has had history of panic pains in the past. No other complaints or modifying factors MD Complaint: chest pain - Related Data Home Medications Medication Instructions Recorded Confirmed Fenofibrate Nanocrystallized 145 mg PO DAILY 12/25/17 05/06/18 [Tricor] Aspirin [Children's Aspirin] 81 mg PO DAILY 02/01/18 05/06/18 amLODIPine [Norvasc] 5 mg PO DAILY 02/03/18 05/06/18 Omeprazole [PriLOSEC] 20 mg PO DAILY 05/04/18 05/06/18 Previous Rx's Medication Instructions Recorded Ketorolac [Toradol] 10 mg PO Q6HR #20 tab 03/05/20 Allergies Allergy/AdvReac Type Severity Reaction Status Date / Time No Known Allergies Allergy Verified 03/05/20 13:00 Review of Systems ROS Statement: Those systems with pertinent positive or pertinent negative responses have been documented in the HPI. ROS Other: All systems not noted in ROS Statement are negative. EKG Findings - EKG Results: EKG: interpreted by SAM, sinus rhythm (Sinus rhythm of 88. Interval 168 QRS duration 90 QT since QTC 354/428 left exodeviation moderate voltage criteria for LVH this is compared with EKG dated 12/17/17 showing similar configuration) Past Medical History Past Medical History: Hyperlipidemia, Hypertension Additional Past Medical History / Comment(s): CURRENTLY HAS ABSCESSED TOOTH-TO BE PULLED LATER TODAY. GALLBLADDER DISORDER History of Any Multi-Drug Resistant Organisms: None Reported Past Surgical History: Cholecystectomy, Hernia Repair, Orthopedic Surgery Additional Past Surgical History / Comment(s): BILAT KNEE SCOPES. BILAT ROTATOR CUFF REPAIR. DOUBLE HERNIA. COLONOSCOPY Past Anesthesia/Blood Transfusion Reactions: No Reported Reaction Past Psychological History: No Psychological Hx Reported Smoking Status: Never smoker Past Alcohol Use History: Occasional Past Drug Use History: Marijuana - Past Family History Mother Family Medical History: No Reported History General Exam - General Exam Comments Initial Comments: This is a well-developed well-nourished awake alert oriented times 3 male Limitations: no limitations Course Vital Signs 03/05/20 03/05/20 03/05/20 12:55 13:56 14:00 Temperature 97.8 F Pulse Rate 87 92 87 Respiratory 18 16 20 Rate Blood Pressure 156/94 134/93 134/93 O2 Sat by Pulse 100 97 90 L Oximetry 03/05/20 14:30 Temperature Pulse Rate 82 Respiratory 17 Rate Blood Pressure 142/97 O2 Sat by Pulse 96 Oximetry - Reevaluation(s) Reevaluation #1: 03/05/20 15:22 No real change after nitroglycerin patient did however get relief with IV Toradol. Chest Pain MDM - MDM Reviewed no evidence of acute findings on the x-ray. The pain does appear to be costochondritic in etiology/musculoskeletal. Patient d-dimer is pending. This is negative he'll be discharged with anti-inflammatories as well as instructions to follow-up with his doctor and I do recommend an outpatient stress test. Disposition Clinical Impression: Atypical chest pain, Chest wall syndrome Disposition: HOME SELF-CARE Condition: Good Instructions (If sedation given, give patient instructions): Costochondritis (ED), Chest Wall Pain (ED) Additional Instructions: Medication prescription sent to your preferred pharmacy. Additionally follow-up with [facility] doctor for scheduling an outpatient cardiac stress test. Prescriptions: Ketorolac [Toradol] 10 mg PO Q6HR #20 tab Is patient prescribed a controlled substance at d/c from ED?: No Referrals: Almas Martel MD [Primary Care Provider] - 1-2 days
[2020-03-05 13:39] LABS: Basophils # (A) 0.1 k/uL (0-0.2); Basophils % (A) 1 %; Eosinophils # (A) 0.1 k/uL (0-0.7); Eosinophils % (A) 2 %; HCT 51.6 % (39.0-53.0); HGB 17.5 gm/dL (13.0-17.5); Lymphocytes # (A) 1.4 k/uL (1.0-4.8); Lymphocytes % (A) 26 %; MCH 31.6 pg (25.0-35.0); Mean Platelet Volume 7.8; Monocytes # (A) 0.4 k/uL (0-1.0); Monocytes % (A) 8 %; Neutrophils # (A) 3.4 k/uL (1.3-7.7); Neutrophils % (A) 61 %; Platelet Count 229 k/uL (150-450); RBC 5.55 m/uL (4.30-5.90); RDW 12.6 % (11.5-15.5); WBC 5.6 k/uL (3.8-10.6)
--- NOTE | 2020-03-05 13:43 | XR ---
EXAMINATION TYPE: XR chest 2V DATE OF EXAM: 03/05/2020 COMPARISON: CXR from 12/25/2017. HISTORY: Chest pain. TECHNIQUE: Frontal and lateral views of the chest are obtained. FINDINGS: There is mild chronic parenchymal change without suspicious focal air space opacity, pleur al effusion, or pneumothorax seen. The cardiac silhouette size remains within normal limits. Some di sc space narrowing and mild spurring at the lower thoracic spine redemonstrated. Overlying EKG leads redemonstrated. IMPRESSION: No acute cardiopulmonary process. No significant change from prior.
[2020-03-05 13:46] LABS: ALT 18 U/L (4-49); AST 26 U/L (17-59); African American GFR (CKD) >90 (>60 ml/min/1.73 sqM); Albumin 4.9 g/dL (3.5-5.0); Alkaline Phosphatase 66 U/L (38-126); Anion Gap 8 mmol/L; Blood Urea Nitrogen 24 mg/dL (9-20); Calcium 9.7 mg/dL (8.4-10.2); Carbon Dioxide 23 mmol/L (22-30); Chloride 106 mmol/L (98-107); Creatine Kinase 51 U/L (55-170); Glucose 116 mg/dL (74-99); Non-African American GFR(CKD) >90 (>60 ml/min/1.73 sqM); Potassium 4.4 mmol/L (3.5-5.1); Sodium 137 mmol/L (137-145); Total Bilirubin 0.6 mg/dL (0.2-1.3); Total Protein 7.6 g/dL (6.3-8.2)
[2020-03-05] MEDS ORDERED: KETOROLAC 15 MG/ML 1 ML VIAL IVP STA (14:25)
[2020-03-05 15:14] LABS: D-Dimer <0.17 mg/L FEU (<0.60); INR 0.9 (<1.2); Partial Thromboplastin Time 23.6 sec (22.0-30.0); Prothrombin Time 9.8 sec (9.0-12.0)
[2020-03-05 15:45] VITALS: BP 134/97; PULSE 80; RESP 20
== END 2020-03-05 16:02 | disposition home or self-care (01) ==
LOC: EC 12:44
DX: R07.89 Other chest pain (principal); R07.1 Chest pain on breathing; I10 Essential (primary) hypertension; E78.5 Hyperlipidemia, unspecified; Z79.82 Long term (current) use of aspirin; Z79.899 Other long term (current) drug therapy; I25.2 Old myocardial infarction
CPT/HCPCS: 36415; 93005; 85379; 83880; 80053; 82550; 83690; 83735; 84484; 85025; 85610; 85730; 71046; 96374; 99285; J1885

== ENCOUNTER → 2021-08-06 | Outpatient (CLI) | payer BC ==
--- NOTE | 2021-08-06 09:55 | CT ---
EXAMINATION TYPE: CT sinus wo con DATE OF EXAM: 08/06/2021 COMPARISON: None HISTORY: Sinusitis CT DLP: 673.7 mGycm. Automated Exposure Control for Dose Reduction was Utilized. TECHNIQUE: CT scan of the sinuses is performed without contrast, axial images are obtained, coronal r eformatted images are also reviewed. FINDINGS: There is a nasal septal deviation. There is a calcification in the right temporal small to characterize. There is mild mucosal thickening involving the maxillary sinuses remaining paranasal si nuses are normal development and aeration. The ostiomeatal complex is patent bilaterally on the coron al images. Visualized portion of mastoid air cells show no abnormal opacification. The globes are intact bilate rally. IMPRESSION: 1. Minimal changes of chronic maxillary sinusitis. The sinuses are clear and the ostiomeatal complex is patent bilaterally.
== END | disposition home or self-care (01) ==
LOC: RADCTMAIN 08:35
PROVIDERS: ATTEND Otolaryngology
DX: J32.9 Chronic sinusitis, unspecified (principal)
CPT/HCPCS: 70486

== ENCOUNTER 2024-02-02 17:27 | Emergency (ER) | payer BC ==
[2024-02-02 17:33] VITALS: TEMP 98.2
--- NOTE | 2024-02-02 17:59 | ED ---
Eye Problem HPI - General Chief complaint: Eye Problems Stated complaint: L Glass in Eye Time Seen by Provider: 02/02/24 17:40 Source: patient, RN notes reviewed Mode of arrival: ambulatory Limitations: no limitations - History of Present Illness Initial comments: This is a 63-year-old male presents emergency department chief complaint of foreign body in his left eye. Patient states that he was using a tractor when a branch went at the class and injured his left eye. Patient denies blurry or double vision or pain with extraocular eye movement. He denies loss of consciousness or hitting his head at the time of this event. Patient denies contact lens use. He denies headaches, nausea. Patient is unaware when his last tetanus vaccination was. No other acute complaints at this time - Related Data Home Medications Medication Instructions Recorded Confirmed Fenofibrate Nanocrystallized 145 mg PO DAILY 12/25/17 05/06/18 [Tricor] Aspirin [Children's Aspirin] 81 mg PO DAILY 02/01/18 05/06/18 amLODIPine [Norvasc] 5 mg PO DAILY 02/03/18 05/06/18 Omeprazole [PriLOSEC] 20 mg PO DAILY 05/04/18 05/06/18 Previous Rx's Medication Instructions Recorded Ketorolac [Toradol] 10 mg PO Q6HR #20 tab 03/05/20 Allergies Allergy/AdvReac Type Severity Reaction Status Date / Time No Known Allergies Allergy Verified 02/02/24 17:33 Review of Systems ROS Statement: Those systems with pertinent positive or pertinent negative responses have been documented in the HPI. ROS Other: All systems not noted in ROS Statement are negative. Past Medical History Past Medical History: Hyperlipidemia, Hypertension Additional Past Medical History / Comment(s): CURRENTLY HAS ABSCESSED TOOTH-TO BE PULLED LATER TODAY. GALLBLADDER DISORDER History of Any Multi-Drug Resistant Organisms: None Reported Past Surgical History: Cholecystectomy, Hernia Repair, Orthopedic Surgery Additional Past Surgical History / Comment(s): BILAT KNEE SCOPES. BILAT ROTATOR CUFF REPAIR. DOUBLE HERNIA. COLONOSCOPY Past Anesthesia/Blood Transfusion Reactions: No Reported Reaction Past Psychological History: No Psychological Hx Reported Smoking Status: Never smoker Past Alcohol Use History: Occasional Past Drug Use History: Marijuana - Past Family History Mother Family Medical History: No Reported History General Exam Limitations: no limitations General appearance: alert, in no apparent distress Head exam: Present: atraumatic, normocephalic, normal inspection Expanded Eyelids: Normal Inspection: Bilateral Pupils: Regular, Round: Bilateral Sclera/Conjunctival: Injection: Left, Hemorrhage: Left Visual acuity (R) = 20/: 30 Visual acuity (L) = 20/: 30 With correction: No ENT exam: Present: normal exam, mucous membranes moist Neck exam: Present: normal inspection. Absent: tenderness, meningismus, lymphadenopathy Respiratory exam: Present: normal lung sounds bilaterally. Absent: respiratory distress, wheezes, rales, rhonchi, stridor Cardiovascular Exam: Present: regular rate, normal rhythm, normal heart sounds. Absent: systolic murmur, diastolic murmur, rubs, gallop, clicks GI/Abdominal exam: Present: soft, normal bowel sounds. Absent: distended, tenderness, guarding, rebound, rigid Extremities exam: Present: normal inspection, full ROM, normal capillary refill. Absent: tenderness, pedal edema, joint swelling, calf tenderness Back exam: Present: normal inspection Skin exam: Present: warm, dry, intact, normal color. Absent: rash Course Vital Signs 02/02/24 02/02/24 17:31 19:56 Temperature 98.2 F Pulse Rate 88 73 Respiratory 20 18 Rate Blood Pressure 145/91 153/91 O2 Sat by Pulse 95 95 Oximetry Medical Decision Making - Medical Decision Making Was pt. sent in by a medical professional or institution (, PA, SPRING FORGER, urgent care, hospital, or fdc...) When possible be specific @ -No Did you speak to anyone other than the patient for history (EMS, parent, family, police, friend...)? What history was obtained from this source @ -No Did you review nursing and triage notes (agree or disagree)? Why? @ -I reviewed and agree with nursing and triage notes Were old charts reviewed (outside hosp., previous admission, EMS record, old EKG, old radiological studies, urgent care reports/EKG's, fdc records)? Report findings @ -No old charts were reviewed Differential Diagnosis (chest pain, altered mental status, abdominal pain women, abdominal pain men, vaginal bleeding, weakness, fever, dyspnea, syncope, headache, dizziness, GI bleed, back pain, seizure, CVA, palpatations, mental health, musculoskeletal)? @ -Conjunctival laceration, corneal abrasion, globe rupture, hyphema, traumatic iritis, this list is not all inclusive. EKG interpreted by me (3pts min.). @ -none X-rays interpreted by me (1pt min.). @ -None done CT interpreted by me (1pt min.). @ -CT imaging of the orbits without contrast reveals an old radiopaque foreign body inferior to the right orbit within the right cheek, no radiopaque foreign bodies identified in the orbits. U/S interpreted by me (1pt. min.). @ -None done What testing was considered but not performed or refused? (CT, X-rays, U/S, labs)? Why? @ -None What meds were considered but not given or refused? Why? @ -None Did you discuss the management of the patient with other professionals (professionals i.e. , PA, SPRING FORGER, lab, RT, psych nurse, hospital social worker, component assembler, teacher, truant officer, catalytic case operator)? Give summary @ -No Was smoking cessation discussed for >3mins.? @ -No Was critical care preformed (if so, how long)? @ -No Were there social determinants of health that impacted care today? How? (Homelessness, low income, unemployed, alcoholism, drug addiction, transportation, low edu. Level, literacy, decrease access to med. care, [facility], rehab)? @ -No Was there de-escalation of care discussed even if they declined (Discuss DNR or withdrawal of care, Hospice)? DNR status @ -No What co-morbidities impacted this encounter? (DM, HTN, Smoking, COPD, CAD, Cancer, CVA, ARF, Chemo, Hep., AIDS, mental health diagnosis, sleep apnea, morbid obesity)? @ -None Was patient admitted / discharged? Hospital course, mention meds given and route, prescriptions, significant lab abnormalities, going to OR and other pertinent info. @ -Discharged. 63-year-old male with left eye injury. On examination patient started to have conjunctival hemorrhage of the left eye, pupils are equal round and reactive, visual acuity is intact. There is a noted conjunctival laceration. With concern for potential foreign body in the eye that is minuscule and unable to be visualized patient will be sent for CT of the orbits for further evaluation. Additionally patient provided with tetanus vaccination. CT imaging no radiopaque foreign body identified. Patient's eye was stained with fluorescein dye and proparacaine drops with visualization revealing a conjunctival laceration. Patient is provided with erythromycin ointment to apply in the eye and instructed to follow-up with ophthalmology tomorrow for further evaluation. All questions answered at bedside and strict return parameters mikayla with the patient has verbalized understanding. Case discussed with Dr. Purcell Undiagnosed new problem with uncertain prognosis? @ -No Drug Therapy requiring intensive monitoring for toxicity (Heparin, Nitro, Insulin, Cardizem)? @ -No Were any procedures done? @ -No Diagnosis/symptom? @ -Conjunctival laceration Acute, or Chronic, or Acute on Chronic? @ -Acute Uncomplicated (without systemic symptoms) or Complicated (systemic symptoms)? @ -Uncomplicated Side effects of treatment? @ -No Exacerbation, Progression, or Severe Exacerbation? @ -No Poses a threat to life or bodily function? How? (Chest pain, [place], [place], pneumonia, PE, COPD, DKA, ARF, appy, cholecystitis, CVA, Diverticulitis, Homicidal, Suicidal, threat to staff... and all critical care pts) @ -No Disposition Clinical Impression: Conjunctival laceration Disposition: HOME SELF-CARE Condition: Good Instructions (If sedation given, give patient instructions): Corneal Abrasion (ED) Additional Instructions: Return to emergency department for any new or worsening symptoms. Apply 1 cm ribbon of antibiotic ointment to affected eye up to 6 times per day for 7 days. Recommend follow-up with car retarder operator in the next 1 to 2 days for further evaluation. Is patient prescribed a controlled substance at d/c from ED?: No Referrals: Almas Martel MD [Primary Care Provider] - 1-2 days Time of Disposition: 19:26
[2024-02-02] MEDS: PROPARACAINE 0.5% OPHTH DROPS 15 ML BTL RIGHT EYE STA (18:16)
[2024-02-02] MEDS: FLUORESCEIN STRIPS 1 MG STRIP RIGHT EYE ONE (18:16)
[2024-02-02] MEDS: DIPH,PERTUS(ACELL)TETVAC-LF 0.5 ML VIAL IM ONE (18:38)
--- NOTE | 2024-02-02 18:58 | CT ---
EXAMINATION TYPE: CT orbits wo con DATE OF EXAM: 02/02/2024 COMPARISON: 08/06/2021 HISTORY: Possible foreign body in eyes/laceration from glass breaking into face. CT DLP: 300 mGycm Automated exposure control for dose reduction was used. Contrast: None Technique: Axial images 2 mm thick sections. Reconstructed images in sagittal. FINDINGS: There is a radiopaque foreign body within the right cheek. Series 201 image 8. No additional radiopaq ue foreign bodies identified. This was present on the prior sinus CT Orbits appear symmetrical. Globes are symmetrical. Intraconal and extraconal fat is normal. Soft tiss ues are normal. There is some mild septal deviation to the right. Paranasal sinuses are clear. No acu te fractures are evident. IMPRESSION: 1. Old RADIOPAQUE FOREIGN BODY INFERIOR TO THE RIGHT ORBIT WITHIN THE RIGHT CHEEK, PRESENT 2021. 2. NO RADIOPAQUE FOREIGN BODIES IDENTIFIED IN THE ORBITS.
[2024-02-02] MEDS: ERYTHROMYCIN 5 MG/GM OPHTH OINT 3.5 GM TUBE RIGHT EYE STA (19:47)
[2024-02-02 19:57] VITALS: BP 153/91; PULSE 73; RESP 18
== END 2024-02-02 19:57 | disposition home or self-care (01) ==
LOC: EC 17:27
CPT/HCPCS: 70480; 90471; 90715; 99283